=== PATIENT | male | born 1980 | race Caucasian/White ===

== ENCOUNTER 2016-09-08 19:29 | Emergency (ER) | payer MEDICARE ==
[~2016-09-08] VITALS: Ht 175.3 cm; Wt 104.0 kg
[~2016-09-08 19:29] MED LIST: CLON.5 PO; EPIP0.3I IJ; LITH450T PO; PROT40TA PO; RISP1TAB2 PO
[2016-09-08 19:30] VITALS: BP 142/81; PULSE 79; RESP 16; TEMP 98.5; O2SAT 97
[2016-09-08 21:23] VITALS: O2SAT 98
[2016-09-08] MEDS ORDERED: CORTI10A RIGHT EAR (21:33)
--- NOTE | 2016-09-08 21:34 | PD ---
HPI Chief Complaint: ENT Complaint Time Seen by Provider: 21:22 Travel History International Travel<30 days: No Contact w/Intl Traveler<30days: No Traveled to known affect area: No History of Present Illness HPI Patient is a 36-year-old male with mild cerebral palsy presents the emergency department with right ear discharge and pain. Patient states he tried to clean his ear with a Q-tip and thinks might get stuck in there and is wondering if he injured his eardrum appears comfortable by his father today. Denies any fever cough congestion sore throat. States symptoms been going on for the past few days gradually worsening. PFSH Past Medical History ADHD: Yes Bipolar Disorder: Yes Anxiety: Yes Depression: Yes Cancer: No Cardiovascular Problems: No Developmental Delay: Yes (MILD MR) Diabetes: No Diminished Hearing: No Endocrine: No Gastrointestinal Disorders: Yes (ESOPH. STRICTURE) Genitourinary: No Hepatitis: No Hiatal Hernia: No Immune Disorder: No Medical other: Yes (MILD CEREBRAL PALSY, ) Musculoskeletal: Yes (SCOLIIOSIS, ) Psychiatric: Yes (OCD, POSS AUTISM) Respiratory: Yes (SLEEP APNEA (CPAP)) Seizures: Yes Sleep Apnea: Yes (CPAP, REFUSES TO USE) Thyroid Disease: No Past Surgical History AICD: No Body Medical Devices: HARDWARE LEFT SM AND INDEX FINGERS Cholecystectomy: Yes (2012) Joint Replacement: No Pacemaker: No Tonsillectomy: Yes (AND ADENOIDS) Tympanostomy Tube: Yes Other Surgery: Yes (ESOPHAGEAL STENOSIS) Social History Alcohol Use: No Tobacco Use: No Substance Use: No Allergies-Medications (Allergen,Severity, Reaction): Coded Allergies: Ativan (Verified Allergy, Severe, HIVES, "BECOMES MEAN", 09/08/16) Buspar (Verified Allergy, Severe, HIVES, 09/08/16) Codeine (Verified Allergy, Severe, N/V, 09/08/16) Contrast Media (Unverified Allergy, Severe, DYSPNEA, THROAT CLOSES, HIVES , 09/08/16) Shellfish (Verified Allergy, Severe, 09/08/16) Sulfa (Verified Allergy, Severe, TURNS BRIGHT RED, 09/08/16) Reported Meds & Prescriptions Reported Meds & Active Scripts Active Htuyvxrl-Llxbewcdo-RW Otic Drops (Neomycin/Polymyxin/Hydrocortisone) 1 % Soln 4 Drop RIGHT EAR QID Reported Protonix (Pantoprazole Sodium) 40 Mg Tab 40 Mg PO DAILYPRN Risperidone 1 Mg Tab 1 Mg PO BID Epipen (Epinephrine) 0.3 Mg Inj 0.3 Mg IJ PRN Eskalith Cr ([place] Carbonate) 450 Mg Tabcr 450 Mg PO BID Klonopin (Clonazepam) 0.5 Mg Tab 0.5 Mg PO BID Review of Systems Except as stated in HPI: all other systems reviewed are Neg Physical Exam Narrative GENERAL: Well-nourished, well-developed patient. SKIN: Focused skin assessment warm/dry. HEAD: Normocephalic. EYES: No scleral icterus. No injection or drainage. ENT: No foreign body visualized in the right TM, there is copious purulent discharge from the right ear, no cellulitic changes over the and none or face. Left TM is clear. The TM is intact bilaterally. NECK: Supple, trachea midline. No JVD or lymphadenopathy. CARDIOVASCULAR: Regular rate and rhythm without murmurs, gallops, or rubs. RESPIRATORY: Breath sounds equal bilaterally. No accessory muscle use. GASTROINTESTINAL: Abdomen soft, non-tender, nondistended. MUSCULOSKELETAL: No cyanosis, or edema. BACK: Nontender without obvious deformity. No CVA tenderness. Data Data Last Documented VS Vital Signs Date Time Temp Pulse Resp B/P Pulse Ox O2 Delivery O2 Flow Rate FiO2 09/08/16 21:23 98 Room Air 09/08/16 19:30 98.5 79 16 142/81 [facility] Medical Decision Making Medical Screen Exam Complete: Yes Emergency Medical Condition: Yes Differential Diagnosis Otitis media, otitis externa, foreign body in the ear canal. Narrative Course Patient roomed emergency department, his ear was irrigated with normal saline to remove the debris, the patient be placed on antibiotic drops. Discussed prevention techniques in the future including half water half acetic acid treatments. He is stable for discharge. Discussed return to ED criteria. Diagnosis Primary Impression: Otitis externa Qualified Code: H60.501 - Acute otitis externa of right ear, unspecified type Med/Other Pt SpecificInfo: Prescription(s) given Scripts Absryfgx-Ybsqhytgz-MS Otic Drops 1 % Soln4 Drop RIGHT EAR QID #1 BOTTLE Ref 0 Prov:Noel Bates MD 09/08/16 Disposition: 01 DISCHARGE HOME Condition: Stable Noel Bates MD Sep 08, 2016 21:34
== END 2016-09-08 22:07 | disposition home or self-care (01) ==
LOC: NEPD 19:29
DX: H60.91 Unspecified otitis externa, right ear (principal); F31.9 Bipolar disorder, unspecified; F90.9 Attention-deficit hyperactivity disorder, unspecified type; F41.9 Anxiety disorder, unspecified; G80.9 Cerebral palsy, unspecified; M41.9 Scoliosis, unspecified; R56.9 Unspecified convulsions; F42.9 Obsessive-compulsive disorder, unspecified
CPT/HCPCS: 99283

== ENCOUNTER 2017-06-03 13:13 | Emergency (ER) | payer MEDICARE ==
[~2017-06-03 13:13] MED LIST changes: +CORTI10A RIGHT EAR
[2017-06-03 13:24] VITALS: BP 168/74; PULSE 69; RESP 16; TEMP 97.2; O2SAT 98
[2017-06-03 15:17] LABS: AUTOMATED NEUTROPHIL # 4.8 TH/MM3 (1.8-7.7); EOSINOPHIL # 0.4 TH/MM3 (0-0.4); EOSINOPHIL % 4.7 % (0.0-4.0); HEMATOCRIT 40.7 % (39.0-51.0); HEMOGLOBIN 14.2 GM/DL (13.0-17.0); LYMPH % 28.7 % (9.0-44.0); LYMPHOCYTE # 2.4 TH/MM3 (1.0-4.8); MEAN CELL VOLUME 89.3 FL (80.0-100.0); MEAN CORPUSCULAR HEMOGLOBIN 31.1 PG (27.0-34.0); MEAN CORPUSCULAR HGB CONC 34.8 % (32.0-36.0); MEAN PLATELET VOLUME 9.2 FL (7.0-11.0); MONO % 8.3 % (0.0-8.0); MONOCYTE # 0.7 TH/MM3 (0-0.9); NEUT % 58.3 % (16.0-70.0); PLATELET COUNT 242 TH/MM3 (150-450); RED BLOOD COUNT 4.56 MIL/MM3 (4.50-5.90); RED CELL DISTRIBUTION WIDTH 12.5 % (11.6-17.2); WHITE BLOOD COUNT 8.2 TH/MM3 (4.0-11.0)
[2017-06-03 15:24] LABS: BICARBONATE 26.5 MEQ/L (21.0-32.0); CALCIUM 9.5 MG/DL (8.5-10.1); CREATININE 0.83 MG/DL (0.60-1.30)
[2017-06-03] MEDS ORDERED: MECLIZINE HCL 25 MG TAB PO ONE (16:45)
--- NOTE | 2017-06-03 16:45 | PD ---
HPI Chief Complaint: Dizziness Time Seen by Provider: 16:31 Travel History International Travel<30 days: No Contact w/Intl Traveler<30days: No Traveled to known affect area: No History of Present Illness HPI 36-year-old male presents to the emergency department with complaint of feeling dizzy since this morning and has been constant all day today. Says it is a spinning sensation and feels "disoriented." He has not been dizzy like this before and said it leading to have a seizure back in 2012. He has not had any seizures since 2012. He has never been diagnosed with seizures and does not take medications. Denies new or recent illness. Denies chest pain, shortness of breath, abdominal pain, nausea, vomiting. Denies headache, lightheadedness. Denies confusion, disorientation, change in mentation, slurred speech, focal deficits or weakness. Says his dizziness is worse when he is sitting to standing. Better at rest. Symptoms are mild in severity. Denies illicit drug use, EtOH, tobacco use. Says he called out of work today because he was dizzy and is employer is requesting a doctor's note to return back to work. Primary care provider is Dr. Cameron. Allergies as listed on the chart. History of bipolar, anxiety, OCD, a mild form of cerebral palsy. Has no other medical complaints. No other modifying factors or associated signs and symptoms. PFSH Past Medical History ADHD: Yes Bipolar Disorder: Yes Anxiety: Yes Depression: Yes Cancer: No Cardiovascular Problems: No Developmental Delay: Yes (MILD MR) Diabetes: No Diminished Hearing: No Endocrine: No Gastrointestinal Disorders: Yes (ESOPH. STRICTURE) Genitourinary: No Hepatitis: No Hiatal Hernia: No Immune Disorder: No Medical other: Yes (MILD CEREBRAL PALSY, ) Musculoskeletal: Yes (SCOLIIOSIS, ) Psychiatric: Yes (OCD, POSS AUTISM) Respiratory: Yes (SLEEP APNEA (CPAP)) Seizures: Yes Sleep Apnea: Yes (CPAP, REFUSES TO USE) Thyroid Disease: No Past Surgical History AICD: No Body Medical Devices: HARDWARE LEFT SM AND INDEX FINGERS Cholecystectomy: Yes (2012) Joint Replacement: No Pacemaker: No Tonsillectomy: Yes (AND ADENOIDS) Tympanostomy Tube: Yes Other Surgery: Yes (ESOPHAGEAL STENOSIS) Social History Alcohol Use: No Tobacco Use: No Substance Use: No Allergies-Medications (Allergen,Severity, Reaction): Coded Allergies: Sulfa (Sulfonamide Antibiotics) (Unverified Allergy, Severe, TURNS BRIGHT RED, 09/29/16) buspirone (Unverified Allergy, Severe, HIVES, 09/29/16) codeine (Unverified Allergy, Severe, N/V, 09/29/16) diatrizoate meglumine (Unverified Allergy, Severe, DYSPNEA, THROAT CLOSES , HIVES, 09/29/16) gadobenic acid (Unverified Allergy, Severe, DYSPNEA, THROAT CLOSES, HIVES , 09/29/16) gadodiamide (Unverified Allergy, Severe, DYSPNEA, THROAT CLOSES, HIVES, ) gadoteridol (Unverified Allergy, Severe, DYSPNEA, THROAT CLOSES, HIVES, ) iodixanol (Unverified Allergy, Severe, DYSPNEA, THROAT CLOSES, HIVES, 09/29) iohexol (Unverified Allergy, Severe, DYSPNEA, THROAT CLOSES, HIVES, ) lorazepam (Unverified Allergy, Severe, HIVES, "BECOMES MEAN", 09/29/16) shellfish derived (Unverified Allergy, Severe, 09/29/16) Reported Meds & Prescriptions Reported Meds & Active Scripts Active Cwpekkab-Jfhcbjoco-RV Otic Drops (Neomycin/Polymyxin/Hydrocortisone) 1 % Soln 4 Drop RIGHT EAR QID Reported Protonix (Pantoprazole Sodium) 40 Mg Tab 40 Mg PO DAILYPRN Risperidone 1 Mg Tab 1 Mg PO BID Epipen (Epinephrine) 0.3 Mg Inj 0.3 Mg IJ PRN Eskalith Cr ([place] Carbonate) 450 Mg Tabcr 450 Mg PO BID Klonopin (Clonazepam) 0.5 Mg Tab 0.5 Mg PO BID Review of Systems Except as stated in HPI: all other systems reviewed are Neg Physical Exam Narrative GENERAL: Well-nourished, well-developed male patient, in no acute distress SKIN: Warm and dry. HEAD: Atraumatic. Normocephalic. No facial droop noted. Tongue midline. Shoulder shrug equal. Finger to nose test normal. EYES: Pupils equal and round at 3 mm with brisk reaction. No scleral icterus. No injection or drainage. PERRLA. EOMI. ENT: Mucosa pink and moist. No erythema or exudates. No uvular edema. No uvular , palatal, or tonsillar deviation. Airway patent. NECK: Trachea midline. No lymphadenopathy. CARDIOVASCULAR: Regular rate. RESPIRATORY: No accessory muscle use. GASTROINTESTINAL: Flat. MUSCULOSKELETAL: No obvious deformities. No clubbing. No cyanosis. No edema. NEUROLOGICAL: Awake and alert. Oriented 4. No obvious cranial nerve deficits. Motor grossly within normal limits. Normal speech. No ataxia. No mid -line drift. No upper or lower extremity drift. [employer] strength equal bilaterally. Sensory intact and equal bilaterally. Moves all extremities. Active plantar and dorsiflexion and strength equal bilaterally. 5/5 strength to all extremities. PSYCHIATRIC: Appropriate mood and affect; insight and judgment normal. Data Data Last Documented VS Vital Signs Date Time Temp Pulse Resp B/P (MAP) Pulse Ox O2 Delivery O2 Flow Rate FiO2 06/03/17 17:13 55 16 121/71 (88) 61 18 145/85 (105) 06/03/17 13:24 97.2 98 Orders Orders Complete Blood Count With Diff (06/03/17 13:26) Basic Metabolic Panel (Bmp) (06/03/17 13:26) Drug Screen, Random Urine (06/03/17 13:26) Electrocardiogram (06/03/17 ) Orthostatic Vital Signs (06/03/17 16:34) Meclizine (Antivert) (06/03/17 16:45) Labs Laboratory Tests Test 06/03/17 14:05 06/03/17 14:30 White Blood Count 8.2 TH/MM3 Red Blood Count 4.56 MIL/MM3 Hemoglobin 14.2 GM/DL Hematocrit 40.7 % Mean Corpuscular Volume 89.3 FL Mean Corpuscular Hemoglobin 31.1 PG Mean Corpuscular Hemoglobin Concent 34.8 % Red Cell Distribution Width 12.5 % Platelet Count 242 TH/MM3 Mean Platelet Volume 9.2 FL Neutrophils (%) (Auto) 58.3 % Lymphocytes (%) (Auto) 28.7 % Monocytes (%) (Auto) 8.3 % Eosinophils (%) (Auto) 4.7 % Basophils (%) (Auto) 0.0 % Neutrophils # (Auto) 4.8 TH/MM3 Lymphocytes # (Auto) 2.4 TH/MM3 Monocytes # (Auto) 0.7 TH/MM3 Eosinophils # (Auto) 0.4 TH/MM3 Basophils # (Auto) 0.0 TH/MM3 CBC Comment DIFF FINAL Differential Comment Blood Urea Nitrogen 8 MG/DL Creatinine 0.83 MG/DL Random Glucose 95 MG/DL Calcium Level 9.5 MG/DL Sodium Level 141 MEQ/L Potassium Level 4.0 MEQ/L Chloride Level 108 MEQ/L Carbon Dioxide Level 26.5 MEQ/L Anion Gap 7 MEQ/L Estimat Glomerular Filtration Rate 105 ML/MIN Urine Opiates Screen NEG Urine Barbiturates Screen NEG Urine Amphetamines Screen NEG Urine Benzodiazepines Screen NEG Urine Cocaine Screen NEG Urine Cannabinoids Screen NEG MDM Medical Decision Making Medical Screen Exam Complete: Yes Emergency Medical Condition: Yes Medical Record Reviewed: Yes Differential Diagnosis Dizziness, vertigo, medical clearance Narrative Course 36-year-old male with dizziness. CBC, BMP, drug screen unremarkable. EKG with normal sinus rhythm and without ST elevation or depression; reviewed by Dr. Chairez. Orthostatic vital signs unremarkable. Meclizine ordered. Patient provided a work release note as requested. Instructed patient to follow-up with neurologist. Instructed patient to follow up with primary care provider. Patient verbalizes understanding and agreement with treatment plan. Patient is medically cleared and stable for discharge. Discussed reasons to return to the emergency department. Patient agrees with treatment plan. The patients vital signs are stable and the patient is stable for outpatient follow-up and treatment. Patient discharged home, stable and in no acute distress. Diagnosis Primary Impression: Dizziness Referrals: Neurologist Primary Care Physician Patient Instructions: Dizziness (ED), General Instructions Departure Forms: Tests/Procedures, Work Release Enter return to work date: Jun 06, 2017 Additional Instructions: Jtfh-pgo-ufswakq meclizine as directed and as needed for dizziness Avoid aggravating activity Follow-up with primary care provider Follow-up with neurology as needed Return to the emergency department immediately for worsening of symptoms Med/Other Pt SpecificInfo: No Change to Meds, No Meds Exist/No RX given Disposition: DISCHARGE HOME Condition: Stable Dasha Ross Jun 03, 2017 16:45
[2017-06-03 17:13] VITALS: BP_SYST 121; BP_SYST 145; BP_DIAS 71; BP_DIAS 85; RESP 16; RESP 18
--- NOTE | 2017-06-05 09:21 | EKG ---
Date Performed: 06/03/2017 Time Performed: 14:24:09 PTAGE: 36 years EKG: SINUS BRADYCARDIA PROBABLE INFERIOR MYOCARDIAL INFARCTION ABNORMAL ECG INTERPRETATION BASED ON A DEFAULT AGE OF 40 YEARS NO PREVIOUS TRACING DOCTOR: Airas Diaz Interpretating Date/Time 06/05/2017 09:15:58
== END 2017-06-03 17:56 | disposition home or self-care (01) ==
LOC: NEPD 13:13
DX: R42 Dizziness and giddiness (principal); R94.31 Abnormal electrocardiogram [ECG] [EKG]; Z88.5 Allergy status to narcotic agent; Z88.2 Allergy status to sulfonamides; G80.9 Cerebral palsy, unspecified; Z79.899 Other long term (current) drug therapy
CPT/HCPCS: 80048; 80307; 85025; 93005; 99284